=== PATIENT | male | born 1960 | race Caucasian/White ===

== ENCOUNTER 2017-12-07 07:35 | Day surgery (SDC) | payer OTHER ==
[~2017-12-07] VITALS: Ht 170.2 cm; Wt 110.7 kg
[~2017-12-07 07:35] MED LIST: ALLOPURINOL100 MG PO; ATENOLOL25 MG PO; INDOMETHACIN50 MG PO; LIPITOR20 MG PO; LISINOPRIL20 MG PO; NEURONTIN300 MG PO; OMEPRAZOLE20 MG PO; ULTRAM50 MG PO; VENTOLIN HFA18 GM INH
--- NOTE | 2017-12-07 09:59 | NUR ---
[facility]17 [facility] SLEEPY WITH NO C/O'S. ABD SOFT. 0945 OXYGEN DECREASED TO 2L VIA NC WITH SATS 95%. 0950 OXYGEN DECREASED TO 1L VIA NC WITH SATS 94%. SIPPING ON WATER. 0955 OXYGEN REMOVED. SATS 94% ON RA.
--- NOTE | 2017-12-07 17:15 | OR ---
[facility] [address], [place] [address] Signed DATE OF OPERATION: 12/07/2017 SURGEON: Je Syed MD SCREENING COLONOSCOPY PREOPERATIVE DIAGNOSIS: Screening. POSTOPERATIVE DIAGNOSIS: A 4-7 mm polyps at the distal right colon, 95 cm, 42 cm, 25 cm, and 20 cm. PROCEDURE: Colonoscopy with hot biopsy and snare polypectomy at 20 cm. ESTIMATED BLOOD LOSS: None. INDICATIONS: Chery is a 57-year-old gentleman, asked to see me for his initial screening colonoscopy. He has no family history of colon cancer or polyps. He has no lower GI complaints. I met with Chery in the office. I gave him a pamphlet on colonoscopy. We discussed the nature of the test along with the risks including, but not limited to gas bloating, crampy abdominal pain, bleeding, perforation, requiring surgery, and missed diagnosis. He also understands the need for IV conscious sedation. He expressed understanding and wished to proceed. PROCEDURE NOTE: Chery was taken into our endoscopy suite and placed in the left lateral decubitus position. He was given divided doses of 9 mg of Versed and 150 mcg of fentanyl. He gave us quite a bit of trouble throughout the case with respect to sedation. He has a very thick heavy neck and frequently was hypoxic if we let him wake up. He was moving and pulling at the wires and so forth. There is no question he would be much better served in the future with an anesthesia provider with propofol infusion. We did a rectal exam and this was unremarkable. The adult colonoscope was introduced and advanced around up into the cecum under direct visualization of camera. Overall, his prep was good. He had a couple areas of liquid particulate stool matter, which could not be suctioned out completely. The above-mentioned polyps were visualized and removed with the help of a hot biopsy forceps. We did use our snare 20 cm to divide that polyp. He continued to give us a lot of trouble and we were never able to retroflex the scope Electronically Signed By: JE SYED MD 12/07/17 1715 PATIENT NAME: CHERY AWAD OPERATIVE REPORT DATE OF : 62 REPORT #: [id number] PHYSICIAN: JE SYED MD PCP: TANNER FERNANDES REPORT IS CONFIDENTIAL AND NOT TO BE RELEASED WITHOUT AUTHORIZATION [facility] [address] [place] [id number] Signed during the procedure. After this, the gas was suctioned out. The colonoscope removed. Chery tolerated the procedure quite well. RECOMMENDATIONS: Chery will follow up in my office in 7 to 14 days to review his results. He should undergo a repeat colonoscopy somewhere between 6 and 12 months with the help of an anesthesia provider and propofol infusion. MD SO Villegas/CONNER /[id number] cc: Tanner Syed MD Copies: TANNER FERNANDES ANDREW L MD ~ Electronically Signed By: JE SYED MD 12/07/17 1715 PATIENT NAME: CHERY AWAD OPERATIVE REPORT DATE OF : 62 REPORT #: [id number] PHYSICIAN: JE SYED MD PCP: TANNER FERNANDES REPORT IS CONFIDENTIAL AND NOT TO BE RELEASED WITHOUT AUTHORIZATION
== END 2017-12-07 10:20 | disposition home or self-care (01) ==
LOC: DS 07:35 → OPS 07:35
PROVIDERS: Colon & Rectal Surgery
PROC: 0DBE8ZZ Excision of Large Intestine, Via Natural or Artificial Opening Endoscopic (ICD-10-PCS; 2017-12-07)
PROC: 0DBF8ZZ Excision of Right Large Intestine, Via Natural or Artificial Opening Endoscopic (ICD-10-PCS; principal; 2017-12-07 09:00)
DX: Z12.11 Encounter for screening for malignant neoplasm of colon (principal); D12.2 Benign neoplasm of ascending colon; D12.6 Benign neoplasm of colon, unspecified; K63.5 Polyp of colon; I10 Essential (primary) hypertension; E78.1 Pure hyperglyceridemia; E66.9 Obesity, unspecified; M10.9 Gout, unspecified; G89.29 Other chronic pain; F17.210 Nicotine dependence, cigarettes, uncomplicated; Z79.899 Other long term (current) drug therapy; Z79.891 Long term (current) use of opiate analgesic; Z68.38 Body mass index [BMI] 38.0-38.9, adult
CPT/HCPCS: 99153; G0500; J2250; J3010

== ENCOUNTER 2022-03-31 11:32 | Emergency (ER) | payer OTHER ==
[~2022-03-31] VITALS: Ht 170.2 cm; Wt 104.1 kg
--- OUTSIDE RECORDS SUMMARY | 2022-03-31 11:36 | XMS ---
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 Jimmy has no Care Guidelines for this patient. Angelita VISIT COUNT (12 MO.) 1 [facility] Michelle TOTAL 1 NOTE: Visits indicate total known visits. ED/UCC VISIT TRACKING (12 MO.) 03/31/2022 11:35 [facility] [place] TYPE: Emergency COMPLAINT: - R SIDE FLANK ACROSS ALL ABD PAIN, CHEST PAIN INPATIENT VISIT TRACKING (12 MO.) No inpatient visits to display in this time frame [email or web address]
[2022-03-31] MEDS ORDERED: VAZALORE81 MG PO (11:56)
[2022-03-31] MEDS ORDERED: HYDROCHLOROTHIA25 MG PO (11:57)
[2022-03-31] MEDS ORDERED: PRAVASTATIN SOD40 MG PO (11:57)
[2022-03-31] MEDS ORDERED: METFORMIN HCL500 M2 PO (11:57)
--- NOTE | 2022-03-31 12:48 | EKG ---
[facility] [address] [facility] [place] [address] Signed Normal sinus rhythm Possible Inferior infarct , age undetermined Abnormal ECG When compared with ECG of 07-SEP-2021 10:11, No significant change was found Confirmed by SAMANTHA GARCIA MD ([id number]) on 03/31/2022 12:48:29 PM Electronically Signed By: SAMANTHA GARCIA MD 03/31/22 1248 PATIENT NAME: CHERY AWAD Electrocardiogram DATE OF : 62 PHYSICIAN: SAMANTHA GARCIA MD REPORT #: [id number] REPORT IS CONFIDENTIAL AND NOT TO BE RELEASED WITHOUT AUTHORIZATION
== END 2022-03-31 15:10 | disposition home or self-care (01) ==
LOC: ED 11:32
DX: K21.9 Gastro-esophageal reflux disease without esophagitis (principal); I10 Essential (primary) hypertension; E11.9 Type 2 diabetes mellitus without complications; E78.5 Hyperlipidemia, unspecified; J45.909 Unspecified asthma, uncomplicated; Z79.899 Other long term (current) drug therapy; Z79.82 Long term (current) use of aspirin; Z79.84 Long term (current) use of oral hypoglycemic drugs
CPT/HCPCS: 36415; 71045; 80053; 83690; 83735; 84484; 85025; 93005; 93010; 99285-25; A9270

== ENCOUNTER 2022-07-08 19:09 | Emergency (ER) | payer OTHER ==
[~2022-07-08] VITALS: Ht 170.2 cm; Wt 103.9 kg
[~2022-07-08 19:09] MED LIST changes: +HYDROCHLOROTHIA25 MG PO; +METFORMIN HCL500 M2 PO; +PRAVASTATIN SOD40 MG PO; +VAZALORE81 MG PO
--- OUTSIDE RECORDS SUMMARY | 2022-07-08 19:13 | XMS ---
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 Jimmy has no Care Guidelines for this patient. Angelita VISIT COUNT (12 MO.) 2 RADHA Michelle TOTAL 2 NOTE: Visits indicate total known visits. ED/UCC VISIT TRACKING (12 MO.) 07/08/2022 19:10 [facility] [place] TYPE: Emergency COMPLAINT: - WEAKNESS 03/31/2022 11:[address] 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
--- NOTE | 2022-07-12 13:02 | EKG ---
[facility] [address] [facility] [place] [address] Signed Normal sinus rhythm Possible Inferior infarct (cited on or before 31-MAR-2022) Abnormal ECG When compared with ECG of 31-MAR-2022 11:37, QT has lengthened Confirmed by SAMANTHA GARCIA MD ([id number]) on 07/12/2022 1:02:14 PM Electronically Signed By: SAMANTHA GARCIA MD 07/12/22 1302 PATIENT NAME: CHERY AWAD Electrocardiogram DATE OF : 62 PHYSICIAN: SAMANTHA GARCIA MD REPORT #: [id number] REPORT IS CONFIDENTIAL AND NOT TO BE RELEASED WITHOUT AUTHORIZATION
== END 2022-07-08 23:00 | disposition home or self-care (01) ==
LOC: ED 19:09
DX: E86.0 Dehydration (principal); K42.9 Umbilical hernia without obstruction or gangrene; I10 Essential (primary) hypertension; E11.9 Type 2 diabetes mellitus without complications; E78.5 Hyperlipidemia, unspecified; K21.9 Gastro-esophageal reflux disease without esophagitis; J44.9 Chronic obstructive pulmonary disease, unspecified; F17.200 Nicotine dependence, unspecified, uncomplicated; Z79.899 Other long term (current) drug therapy; Z79.84 Long term (current) use of oral hypoglycemic drugs; Z20.822 Contact with and (suspected) exposure to COVID-19
CPT/HCPCS: 36415; 71045; 74176; 80053; 81003; 83605; 83880; 84484; 85025; 85379; 85610; 86850; 86900; 86901; 87502; 93005; 93010; 96361; 96365; 99284-25; C9803; J3430; J7030; U0003